=== PATIENT | female | born 1975 | race Caucasian/White ===

== ENCOUNTER 2020-09-21 13:59 | Emergency (ER) | payer SELFPAY ==
[2020-09-22 02:49] LABS: SARS-CoV-2 MS2 Positive; SARS-CoV-2 N Gene Positive; SARS-CoV-2 S Gene Positive; SARS-CoV-2 by NAA DETECTED (NotDetected); SARS-CoV-2 orf1ab Positive
== END 2020-09-21 15:00 | disposition home or self-care (01) ==
LOC: BURERS 13:59
DX: U07.1 COVID-19 (principal); E11.9 Type 2 diabetes mellitus without complications; Z79.84 Long term (current) use of oral hypoglycemic drugs
CPT/HCPCS: 87635; 99283; U0003

== ENCOUNTER 2020-10-01 12:26 | Emergency (ER) | payer SELFPAY ==
[2020-10-01 22:28] LABS: SARS-CoV-2 MS2 Positive; SARS-CoV-2 N Gene Negative; SARS-CoV-2 S Gene Negative; SARS-CoV-2 by NAA Not Detected (NotDetected); SARS-CoV-2 orf1ab Negative
== END 2020-10-01 13:35 | disposition home or self-care (01) ==
LOC: BURERS 12:26
DX: U07.1 COVID-19 (principal); E11.9 Type 2 diabetes mellitus without complications; Z79.84 Long term (current) use of oral hypoglycemic drugs; Z79.82 Long term (current) use of aspirin; Z79.01 Long term (current) use of anticoagulants; Z79.899 Other long term (current) drug therapy
CPT/HCPCS: 87635; 99283; U0003

== ENCOUNTER 2021-06-09 16:30 | Emergency (ER) | payer OTHER, SELFPAY | END 2021-06-09 17:05 | disposition left against medical advice (07) | LOC: BURERS 16:30 | DX: Z53.21 Procedure and treatment not carried out due to patient leaving prior to being seen by health care provider (principal) ==

== ENCOUNTER 2025-07-18 18:22 | Emergency (ER) | payer OTHER ==
[2025-07-18] MEDS ORDERED: HYDROcodone/Acetaminophen 5/325 mg Tablet ONE (19:26)
[2025-07-18] MEDS ORDERED: Orphenadrine Citrate 60 MG/2 ML VIAL ONE (19:27)
[2025-07-18] MEDS ORDERED: predniSONE 20 MG TAB ONE (19:27)
== END 2025-07-18 19:55 | disposition home or self-care (01) ==
LOC: BURERS 18:22
DX: S46.911A Strain of unspecified muscle, fascia and tendon at shoulder and upper arm level, right arm, initial encounter (principal); E11.9 Type 2 diabetes mellitus without complications; X50.0XXA Overexertion from strenuous movement or load, initial encounter; Y99.0 Civilian activity done for income or pay; Z79.84 Long term (current) use of oral hypoglycemic drugs; Z79.4 Long term (current) use of insulin
CPT/HCPCS: 96372; 99283; J1885; J2360; J7512